=== PATIENT | male | born 1955 | race Caucasian/White ===

== ENCOUNTER 2023-02-19 07:16 | Emergency (ER) | payer MEDICARE, OTHER ==
[~2023-02-19] VITALS: Ht 170.2 cm; Wt 76.0 kg
[2023-02-19 07:26] VITALS: BP 135/84; PULSE 98; RESP 20; TEMP 98.5; O2SAT 98
[2023-02-19] MEDS ORDERED: LIDOCAINE 2% 100 MG/5 ML UJET TP ONE (07:47)
[2023-02-19 08:21] VITALS: O2SAT 98
[2023-02-19] MEDS ORDERED: TAMS0.4C96 PO (08:59)
[2023-02-19 09:25] LABS: BILIRUBIN,URINE NEGATIVE (NEGATIVE); BLOOD, URINE 3+ (NEGATIVE); COLOR,URINE YELLOW (YELLOW); LEUKOCYTE ESTERASE ,URINE 2+ (NEGATIVE); NITRITE, URINE POSITIVE (NEGATIVE); PROTEIN,URINE NEGATIVE (NEGATIVE); UGLUCOSE NEGATIVE (NEGATIVE); UROBILINOGEN,URINE 0.2 EU/dL (0.2 - 1)
[2023-02-19] MEDS ORDERED: CEPH500C16 PO (09:32)
[2023-02-19 09:36] LABS: APPEARANCE,URINE HAZY (CLEAR); BACTERIA,URINE 1+ /HPF (None Seen)
[2023-02-19 09:37] LABS: RBC,URINE 50-80 /HPF (0-5)
[2023-02-19 09:39] LABS: SQUAMOUS EPITHELIAL CELL,UR 0-3 (FEW) /LPF (0-3 (FEW)); WBC,URINE 20-60 /HPF (0-5)
[2023-02-19 09:46] VITALS: BP 107/74; PULSE 81; RESP 20; TEMP 98.5; O2SAT 98
== END 2023-02-19 10:03 | disposition home or self-care (01) ==
LOC: MED 07:16
DX: R33.9 Retention of urine, unspecified (principal); N39.0 Urinary tract infection, site not specified; D29.1 Benign neoplasm of prostate; Z79.899 Other long term (current) drug therapy
CPT/HCPCS: 51702; 81001; 87086; 99284

== ENCOUNTER 2023-05-07 08:00 | Emergency (ER) | payer MEDICARE, OTHER ==
[~2023-05-07] VITALS: Ht 162.6 cm; Wt 72.6 kg
[~2023-05-07 08:00] MED LIST: CEPH500C16 PO; TAMS0.4C96 PO
[2023-05-07 08:13] VITALS: BP 122/71; PULSE 79; RESP 18; TEMP 97.9; O2SAT 100
[2023-05-07 10:15] VITALS: BP 122/71; PULSE 79; RESP 18; TEMP 97.9; O2SAT 100
== END 2023-05-07 10:15 | disposition home or self-care (01) ==
LOC: MED 08:00
DX: N40.0 Benign prostatic hyperplasia without lower urinary tract symptoms (principal); Z79.899 Other long term (current) drug therapy; Z79.2 Long term (current) use of antibiotics
CPT/HCPCS: 99281